=== PATIENT | female | born 1985 | race Caucasian/White ===

== ENCOUNTER 2017-03-16 19:39 | Inpatient (IN) | payer BC ==
[2017-03-16] VITALS (7 sets, daily range): BP systolic 155–185; BP diastolic 84–106; PULSE 72–102; TEMP 98.1–98.8
[~2017-03-16] VITALS: Ht 170.2 cm; Wt 100.9 kg
[2017-03-16 21:32] LABS: BASO # 0.1 (0.0-0.2); BASO % 0.5 % (0.0-2.0); EOS # 0.5 (0.0-0.7); EOS % 3.2 % (0-4.0); GRAN # 12.4 (1.4-6.5); GRAN % 74.3 % (42.2-75.2); HEMATOCRIT 34.6 % (37.0-47.0); HEMOGLOBIN 11.9 g/dl (12.5-16.0); LYMPH # 2.2 (1.2-3.4); MEAN CELL VOLUME 92 fl (80.0-100.0); MEAN CORPUSCULAR HEMOGLOBIN 32 pg (27.0-31.0); MEAN CORPUSCULAR HGB CONC 34 g/dl (33.0-37.0); MEAN PLATELET VOLUME 10.1 fl (7.4-10.4); MONO # 1.3 (0.1-0.6); MONO % 7.6 % (1.7-9.3); PLATELET COUNT 238 K/mm3 (130-400); RED BLOOD COUNT 3.75 M/mm3 (4.10-5.30); REDCELL DISTRIBUTION WIDTH-CV 12.3 % (11.5-14.5); WHITE BLOOD COUNT 16.7 K/mm3 (4.8-10.8)
[2017-03-16 21:46] LABS: ADJUSTED CALCIUM 9.7 mg/dL (8.4-10.2); ALBUMIN 3.1 gm/dL (3.5-5.0); BILIRUBIN,TOTAL 0.3 mg/dL (0.0-1.0); CREATININE, serum 0.95 mg/dL (0.52-1.25); POTASSIUM 4.2 mmol/L (3.4-5.0); TOTAL PROTEIN 6.4 gm/dL (6.4-8.2)
[2017-03-17] VITALS (31 sets, daily range): BP systolic 119–169; BP diastolic 68–103; PULSE 82–131; TEMP 98–98.8
[2017-03-17] MEDS ORDERED: PRENATAL1 TA7 PO (00:34)
[2017-03-18 07:00] VITALS: BP 125/82; PULSE 93; TEMP 98.2
[2017-03-18] MEDS ORDERED: MOTRIN 800800 MG/TAB PO (08:55)
[2017-03-18] MEDS ORDERED: PERCOCET 325 MG1 TA2 PO (08:55)
== END 2017-03-18 12:15 | disposition home or self-care (01) | DRG 775 ==
LOC: LDRO 19:39 → LDR 22:01 → OB 22:01
PROVIDERS: Obstetrics & Gynecology
PROC: 10E0XZZ Delivery of Products of Conception, External Approach (ICD-10-PCS; principal; 2017-03-16)
PROC: 0KQM0ZZ Repair Perineum Muscle, Open Approach (ICD-10-PCS; 2017-03-16)
DX: O13.4 Gestational [pregnancy-induced] hypertension without significant proteinuria, complicating childbirth (principal); O36.5930 Maternal care for other known or suspected poor fetal growth, third trimester, not applicable or unspecified; O70.1 Second degree perineal laceration during delivery; Z3A.37 37 weeks gestation of pregnancy; Z37.0 Single live birth
CPT/HCPCS: J0360; J2405; J2590; J7120

== ENCOUNTER 2020-09-15 09:20 | Inpatient (IN) | payer BC ==
[2020-09-15] VITALS (7 sets, daily range): BP systolic 153–191; BP diastolic 87–106; PULSE 64–71; TEMP 97.9
[~2020-09-15] VITALS: Ht 172.7 cm; Wt 103.6 kg
[~2020-09-15 09:20] MED LIST: MOTRIN 800800 MG/TAB PO; PERCOCET 325 MG1 TA2 PO; PRENATAL1 TA7 PO
--- NOTE | 2020-09-15 09:25 | NUR ---
Patient arrives ambulatory from [facility] appointment sent over by Dr. Sauceda for diagnosis of preeclampsia with severe features. Patient denies headache, visual changes, RUQ pain. Changes into gown, EFM explained and placed. VS obtained. 09- Dr. Sauceda notified that patient has arrived. Request for orders. Orders to start IV site and give Betamethasone now, prepare patient for transfer to [facility]. Physician en route to hospital, no further orders at this time. Patient updated on plan of care. 0938- Dr. Sauceda at bedside. Discussing plan of care with patient. 0940- IV started by Jacobo Bolden RN. Saline locked. 0942- Betamethasone given, see EMAR. 0943- Dr. Sauceda at bedside 0950- Magnesium Sulfate 4G bolus infusing after 2 RN verification. See EMAR. 1005- López catheter placed by Jacobo Bolden RN. Magnesium Sulfate infusing at 1G per physician order after 2 RN verification. See EMAR. Physician remains on unit.
[2020-09-15] MEDS ORDERED: NORMODYNE200 MG PO (09:44)
--- NOTE | 2020-09-15 10:48 | NUR ---
Patient repositioned self, difficulty tracing FHR strip. A Pooja RN at bedside adjusting EFM. 1055- This RN at bedside adjusting EFM. Audible movement noted by RN. requested at bedside with bedside sono. 1058- Dr. Sauceda at bedside with bedside sono. EFM adjusted and tracing following sonogram. Physician remains on unit reviewing FHR strip and vital signs. 1110- Orders per Dr. Sauceda for IV Labetolol, see EMAR. [facility] Transport Team at bedside. Care of patient assumed by transport team. See transport team documentation for vital signs, assessment, and medications administed. Dr. Sauceda remains on unit. 1155- Orders per transport team to take patient off EFM and begin transfer to [facility]. EFM discontinued at this time. 1205- Patient tranferred off unit via stretcher under the care of [facility] team.
--- NOTE | 2020-09-15 11:40 | NUR ---
COVID19 test swab collected and sent to lab per order.
== END 2020-09-15 12:05 | disposition home or self-care (01) | DRG 833 ==
LOC: LDRO 09:20 → LDR 09:49
PROVIDERS: ADMIT Obstetrics & Gynecology
DX: O14.12 Severe pre-eclampsia, second trimester (principal); O99.212 Obesity complicating pregnancy, second trimester; E66.9 Obesity, unspecified; O99.612 Diseases of the digestive system complicating pregnancy, second trimester; K21.9 Gastro-esophageal reflux disease without esophagitis; Z3A.23 23 weeks gestation of pregnancy; Z37.0 Single live birth
CPT/HCPCS: J0702; J3475; J7120